=== PATIENT | female | born 1950 | race Two or more races ===

== ENCOUNTER 2021-11-11 01:51 | Emergency (ER) | payer OTHER ==
[~2021-11-11] VITALS: Ht 152.4 cm; Wt 45.4 kg
[~2021-11-11 01:51] MED LIST: COZAAR50 MG
[2021-11-11] MEDS ORDERED: COZAAR25 MG (02:02)
[2021-11-11] MEDS ORDERED: ONDANSETRON ODT4 MG PO (05:30)
[2021-11-11] MEDS ORDERED: PEPCID40 MG PO (05:30)
== END 2021-11-11 05:47 ==
LOC: ER 01:51
DX: R10.13 Epigastric pain (principal)